=== PATIENT | male | born 1975 | race Caucasian/White ===

== ENCOUNTER → 2021-06-28 08:21 | Outpatient (CLI) | payer OTHER, SELFPAY ==
[2021-06-28 13:25] LABS: Influenza A QL RT-PCR Negative (Negative); Influenza B QL RT-PCR Negative (Negative); SARS-CoV-2 RNA PCR Negative
== END ==
PROVIDERS: PCP Internal Medicine; Visit Provider Internal Medicine
DX: R68.89 Other general symptoms and signs (principal); Z20.822 Contact with and (suspected) exposure to COVID-19
CPT/HCPCS: 87502; C9803; U0003; U0005

== ENCOUNTER 2023-04-30 08:59 | Day surgery (SDC) | payer OTHER, SELFPAY ==
[2023-04-13 11:38] VITALS: BMI 26.2
--- NOTE | 2023-04-30 07:25 | P.PNAN_ITS ---
Anes - Initial Pre Proc Eval Procedure: Operation Date: 04/30/23 13:00 Proposed Procedures p Screening Colonoscopy - Mohit Gonzalez MD Date/Time: 04/30/23 07:25 Surgeon: Mohit Gonzalez MD Pre Op Diagnosis: Neoplasm Screening Patient Data Age: 48 Gender: M Height: 1.7 m Weight: 76 kg Allergies Allergy/AdvReac Type Severity Reaction Status Date / Time No Known Allergies Allergy Verified 04/30/23 10:36 Home Medications Medication Instructions Recorded Confirmed Type No Home Medications 11/01/22 04/30/23 History Patient hx anesthesia problems: none Family hx anesthesia problems: none Results Review: All pre-operative results and documents have been reviewed as part of the pre- operative evaluation. [facility] [place] Past Medical History Medical History (Updated 04/30/23 @ 07:25 by Feng Garcia DO) Alcohol abuse Dyslipidemia Suspected sleep apnea Family History Family History Mother Diabetes mellitus Father Diabetes mellitus Family history of chronic obstructive pulmonary disease Family history of malignant neoplasm of kidney Grandparent Cerebrovascular accident Family history of Alzheimer's disease Family history of dementia Social History Social History Smoking packs per day: 0.5 Smoking cigarettes per day: 10.0 Years smoked: 15 Smoking pack-years: 7.50 Smoking status: Former smoker Second hand tobacco smoke exposure: No Smoking end date: 10/26/08 Alcohol intake: current Alcohol use details: beer daily Substance use: never Substance use type: does not use Lack of Transportation: No Lack of Food: Never True Current Housing: I Have Housing Concerned About Future Housing: No Difficulty Paying Gas/Electric Bills: No Difficulty Paying for Meds: No Currently Unemployed: No Education: Associate Degree Difficulty w/ Childcare or Family Care: No Living arrangements: with family Spiritual care concerns: No Anes - Eval Final PreProcedure Day of Procedure 04/30/23 07:25 Patient weight: overweight Heart: regular rate and rhythm Lungs: clear to auscultation Airway: Mallampati scale class II Neurological: alert and oriented Last oral intake: >/= 8 hours ASA classification: III Emergent: no Anesthetic plan: proceed Anesthesia type and monitoring: general GIVS and standard monitoring Results Review: All pre-operative results and documents have been reviewed as part of the pre- operative evaluation. Informed Consent: The patient's anesthetic plan and its attendant risks and benefits were discussed with the patient/family/POA. Questions were solicited and answers provided to the satisfaction of the patient/family/POA.
[2023-04-30 10:44] VITALS: BP 102/74; PULSE 68; RESP 18; TEMP 36.7; O2SAT 98
[2023-04-30 10:46] VITALS: BMI 26.2
[2023-04-30] MEDS: LACTATED RINGERS 1,000 ML 150 ML IV CONT (10:59)
--- NOTE | 2023-04-30 11:23 | PM.HPGS ---
History of Present Illness History of Present Illness Consent: Risks, benefits, and alternatives have been discussed and questions answered. Patient agrees to proceed with procedure. Chief complaint: Neoplasm Screening Narrative: Alec Garcia is a 48 year old male with colon polyp 5 years ago Review of Systems Constitutional: Constitutional: Denies headache(s) and Denies weakness Eyes: Eyes: Denies blurry vision ENT: Reports Normal hearing present, Denies headache(s) and Denies neck pain Cardiovascular: Cardiovascular: Denies chest pain and Denies dyspnea Respiratory: Respiratory: Denies dyspnea Gastrointestinal: Gastrointestinal: Reports no additional gastrointestinal complaints Genitourinary: Genitourinary: Denies dysuria Musculoskeletal: Musculoskeletal: Denies neck pain Integumentary/Breasts: Skin/Breast: Denies dry skin Neurologic: Reports Normal hearing present, Denies headache(s) and Denies weakness Psychiatric: Psychiatric: Denies anxiety Endocrine: Endocrine: Denies change in body appearance Hematologic/Lymphatic: Hematologic/Lymphatic: Denies easy bleeding Allergic/Immunologic: Allergic/Immunologic: Denies urticaria PMFSH Past Medical History Medical History (Updated 04/30/23 @ 07:25 by Feng Garcia DO) Alcohol abuse Dyslipidemia Suspected sleep apnea Family History Family History Mother Diabetes mellitus Father Diabetes mellitus Family history of chronic obstructive pulmonary disease Family history of malignant neoplasm of kidney Grandparent Cerebrovascular accident Family history of Alzheimer's disease Family history of dementia Social History Social History Smoking packs per day: 0.5 Smoking cigarettes per day: 10.0 Years smoked: 15 Smoking pack-years: 7.50 Smoking status: Former smoker Second hand tobacco smoke exposure: No Smoking end date: 10/26/08 Alcohol intake: current Alcohol use details: beer daily Substance use: never Substance use type: does not use Lack of Transportation: No Lack of Food: Never True Current Housing: I Have Housing Concerned About Future Housing: No Difficulty Paying Gas/Electric Bills: No Difficulty Paying for Meds: No Currently Unemployed: No Education: Associate Degree Difficulty w/ Childcare or Family Care: No Living arrangements: with family Spiritual care concerns: No Meds Home Medications and Allergies Home Medications Medication Instructions Recorded Confirmed Type No Home Medications 11/01/22 04/30/23 History Allergies Allergy/AdvReac Type Severity Reaction Status Date / Time No Known Allergies Allergy Verified 04/30/23 10:36 Vital Signs Vital Signs - 24 hr 04/30/23 10:44 Temperature 98.1 F Pulse Rate 68 Respiratory Rate 18 Blood Pressure 102/74 Pulse Oximetry 98 Oxygen Delivery Room Air Exam Const: General: comfortable and no acute distress HENMT: Face/Nose/Sinus: Normal nares present Eyes: General: appearance normal, both eyes and all related structures Neck: Neck: no JVD Resp: Auscultation: clear to auscultation bilaterally Cardio: Rate: regular rate Rhythm: regular rhythm GI: Inspection: non-distended GI Palp: Yes Soft to palpation Skin: General skin exam: normal color Neuro: General: gait normal Speech: normal speech Extrem: General: normal to inspection Psych: Mental Status: mental status grossly normal Assessment and Plan Assessment and plan (1) Encounter for screening colonoscopy: Code(s): Z12.11 - Encounter for screening for malignant neoplasm of colon Status: Acute Assessment and Plan: colonoscopy
[2023-04-30 11:46] VITALS: BP 98/78; PULSE 76; RESP 16; O2SAT 100
[2023-04-30 11:56] VITALS: BP 98/78; PULSE 66; RESP 14; O2SAT 100
[2023-04-30 12:06] VITALS: BP 107/75; PULSE 62; RESP 15; O2SAT 100
--- NOTE | 2023-04-30 13:51 | WPDANESPN ---
Anes - Prog Note Post-Op Date/Time: 04/30/23 13:51 Cardiovascular status: normal Respiratory status: normal Airway patency: baseline Mental status: baseline Post-Op hydration status: normal Vital Signs: Last Vital Signs Temp 36.7 C 04/30/23 10:44 Pulse 62 04/30/23 12:06 Resp 15 04/30/23 12:06 BP 107/75 04/30/23 12:06 Pulse Ox 100 04/30/23 12:06 O2 Del Method Room Air 04/30/23 12:06 Pain Score (VAS): 0 I/O: Intake & Output 04/29/23 04/30/23 04/30/23 23:59 07:59 15:59 Intake Total 900 Balance 900 Post-procedural complaints: none Patient Feedback: Patient satisfied with anesthetic care. Other Findings: Patient vital signs back to baseline. Patient denies nausea and vomiting. Patient's pain under control. Patient OK for discharge.
== END 2023-04-30 12:25 | disposition home or self-care (01) ==
PROVIDERS: PCP Emergency Medicine; Visit Provider Internal Medicine Gastroenterology
PROC: 0DJD8ZZ Inspection of Lower Intestinal Tract, Via Natural or Artificial Opening Endoscopic (ICD-10-PCS; CPT 45378; principal; 2023-04-30 13:00)
DX: Z86.010 Personal history of colon polyps (principal); D12.5 Benign neoplasm of sigmoid colon; K57.30 Diverticulosis of large intestine without perforation or abscess without bleeding
CPT/HCPCS: 45385

== ENCOUNTER 2023-05-01 11:06 | Outpatient (NON) | payer OTHER, SELFPAY | END 2023-05-01 11:07 | disposition home or self-care (01) | LOC: ANHLAB 11:08 | PROVIDERS: PCP Emergency Medicine; Visit Provider Internal Medicine Gastroenterology | DX: D12.5 Benign neoplasm of sigmoid colon (principal) | CPT/HCPCS: 88305 ==

== ENCOUNTER 2023-05-04 10:11 | Outpatient (CLI) | payer OTHER, SELFPAY ==
--- NOTE | ~2023-05-04 | CT_ITS ---
EXAMINATION: CT abdomen pelvis w con DATE: 05/04/2023 11:23 INDICATION: Abdominal pain TECHNIQUE: Computed tomography (CT) of the abdomen and pelvis was performed with 100 cc Omnipaque 350 intravenous contrast. The dose-length product was 344.80 mGy-cm. Automated exposure control and iter ative reconstruction technique were employed. COMPARISON: None. FINDINGS: Lung bases are unremarkable. Heart size normal. No significant pleural or pericardial effus ion. There is mild left hydronephrosis. No obstructing stone or mass is seen. There are low-density m asses of the kidneys, most likely benign cysts. Fatty infiltration of the liver. The pancreas and adrenal glands are unremarkable. There are calcifie d granulomas of the spleen. Gallbladder is present. Nonobstructive bowel gas pattern. Normal appendix . Colonic diverticulosis without evidence for diverticulitis. No acute osseous abnormality. No abnorm al pelvic masses or fluid collections. Colonic diverticulosis without diverticulitis. No significant vascular abnormality. No lymphadenopathy. IMPRESSION: 1. No acute abdominal abnormality. 2: Mild left hydronephrosis without evidence for obstructing mass or stone. Reviewed, dictated and finalized at location B. OWS SUPPORT ENGINEER
[2023-05-04 11:28] LABS: Alanine Aminotransferase 44 U/L (6-50); Albumin Level 4.7 g/dL (3.5-5.1); Alkaline Phosphatase 50 U/L (38-126); Anion Gap 8 mmol/L (8-16); Aspartate Amino Transferase 30 U/L (17-59); Bilirubin,Total 0.7 mg/dL (0.2-1.3); Blood Urea Nitrogen 16 mg/dL (9-20); Carbon Dioxide 29 mmol/L (22-30); Chloride 103 mmol/L (98-107); Cholesterol 217 mg/dL (0-200); Estimated Glomerular Filt Rate > 60; Glucose 97 mg/dL (65-110); HDL Direct 38 mg/dL; Lipase 139 U/L (23-300); Sodium 140 mmol/L (137-145); Triglycerides 226 mg/dL (<150)
[2023-05-04 11:41] LABS: LDL Cholesterol Direct 112 mg/dL
== END 2023-05-04 10:12 | disposition home or self-care (01) ==
LOC: ANHIMG 10:15
PROVIDERS: PCP Emergency Medicine; Visit Provider Emergency Medicine
DX: E78.1 Pure hyperglyceridemia (principal); E78.00 Pure hypercholesterolemia, unspecified; R10.9 Unspecified abdominal pain
CPT/HCPCS: 36415; 74177; 80053; 80061; 83690; Q9967

== ENCOUNTER 2024-02-13 07:36 | Day surgery (SDC) | payer OTHER, SELFPAY ==
[2024-02-11 08:18] VITALS: BMI 26.5
[2024-02-11 09:47] VITALS: BMI 26.6
[2024-02-13 08:02] VITALS: BMI 26.3
[2024-02-13 08:03] VITALS: BP 120/86; PULSE 72; RESP 16; TEMP 36.3; O2SAT 98
[2024-02-13] MEDS: LACTATED RINGERS 1,000 ML 150 ML IV CONT (08:22)
--- NOTE | 2024-02-13 08:34 | PM.HPGS ---
History of Present Illness History of Present Illness Consent: Risks, benefits, and alternatives have been discussed and questions answered. Patient agrees to proceed with procedure. Chief complaint: Unspecified Abdominal Pain Narrative: Alec Garcia is a 49 year old male presents for EGD. Several month history of epigastric discomfort. It is poorly described. Feels as though a thumb pushes in in this area. Occasionally it may be burning. Not particularly related to diet. Originally given a trial of pantoprazole this may no difference. He no longer takes this medication. He is uncertain whether Tums improves the symptoms. Patient recur today for EGD to evaluate we. A colonoscopy performed April of 2023 revealed only small benign polyp. Review of Systems Review of Systems: All systems reviewed & are unremarkable except as noted in HPI and below PMFSH Past Medical History Medical History Alcohol abuse Dyslipidemia Hyperlipidemia Suspected sleep apnea Family History Family History Mother Diabetes mellitus Father Diabetes mellitus Family history of chronic obstructive pulmonary disease Family history of malignant neoplasm of kidney Grandparent Cerebrovascular accident Family history of Alzheimer's disease Family history of dementia Social History Social History Smoking packs per day: 0.5 Smoking cigarettes per day: 10.0 Years smoked: 15 Smoking pack-years: 7.50 Smoking status: Former smoker Tobacco type: cigarettes Second hand tobacco smoke exposure: No Smoking end date: 10/26/08 Alcohol intake: current Drinks per week: 3 Alcohol use details: beer daily Substance use: current Substance use type: marijuana Other substance usage details: DAILY Do You Feel Safe in your Home?: Yes Lack of Transportation: No Lack of Food: Never True Current Housing: I Have Housing Concerned About Future Housing: No Difficulty Paying Gas/Electric Bills: No Difficulty Paying for Meds: No Currently Unemployed: No Education: Associate Degree Difficulty w/ Childcare or Family Care: No Living arrangements: with family Spiritual care concerns: No Meds Home Medications and Allergies Home Medications Medication Instructions Recorded Confirmed Type pantoprazole 40 mg tablet,delayed 40 mg PO DAILY #30 tabs 02/04/24 02/13/24 Rx release (Protonix) multivitamin with minerals-folic 1 tablet PO DAILY 02/11/24 02/13/24 History acid 0.4 mg tablet Allergies Allergy/AdvReac Type Severity Reaction Status Date / Time No Known Allergies Allergy Verified 02/13/24 07:54 Vital Signs Vital Signs - 24 hr 02/13/24 08:03 Temperature 97.4 F L Pulse Rate 72 Respiratory Rate 16 Blood Pressure 120/86 Pulse Oximetry 98 Oxygen Delivery Room Air Exam Narrative: Physical exam reveals patient signs stable. HEENT exam is unremarkable. Patient is anicteric. Lungs are clear to auscultation and to percussion. Heart is without murmur or extra sounds. Abdomen bowel sounds are present soft nontender with no organomegaly. Digital external rectal exam normal. Assessment and Plan Assessment and plan (1) Epigastric pain: Code(s): R10.13 - Epigastric pain Status: Acute Assessment and Plan: Patient with several month history of epigastric pain. Is requested to evaluate more thoroughly. Further recommendations may be given after endoscopy.
--- NOTE | 2024-02-13 08:36 | WPDANESEPPF ---
Anes - Initial Pre Proc Eval Procedure: Operation Date: 02/13/24 09:00 Proposed Procedures p Esophagogastroduodenoscopy - Alec Loyola MD Date/Time: 02/13/24 08:36 Surgeon: Alec Loyola MD Pre Op Diagnosis: Unspecified Abdominal Pain Patient Data Age: 49 Gender: M Height: 1.7 m Weight: 76.3 kg Last Vital Signs Temp 36.3 C L 02/13/24 08:03 Pulse 72 02/13/24 08:03 Resp 16 02/13/24 08:03 BP 120/86 02/13/24 08:03 Pulse Ox 98 02/13/24 08:03 O2 Del Method Room Air 02/13/24 08:03 Allergies Allergy/AdvReac Type Severity Reaction Status Date / Time No Known Allergies Allergy Verified 02/13/24 07:54 Home Medications Medication Instructions Recorded Confirmed Type pantoprazole 40 mg tablet,delayed 40 mg PO DAILY #30 tabs 02/04/24 02/13/24 Rx release (Protonix) multivitamin with minerals-folic 1 tablet PO DAILY 02/11/24 02/13/24 History acid 0.4 mg tablet Patient hx anesthesia problems: none Family hx anesthesia problems: none Results Review: All pre-operative results and documents have been reviewed as part of the pre-operative evaluation. [facility] Past Medical History Medical History Alcohol abuse Dyslipidemia Hyperlipidemia Suspected sleep apnea Family History Family History Mother Diabetes mellitus Father Diabetes mellitus Family history of chronic obstructive pulmonary disease Family history of malignant neoplasm of kidney Grandparent Cerebrovascular accident Family history of Alzheimer's disease Family history of dementia Social History Social History Smoking packs per day: 0.5 Smoking cigarettes per day: 10.0 Years smoked: 15 Smoking pack-years: 7.50 Smoking status: Former smoker Tobacco type: cigarettes Second hand tobacco smoke exposure: No Smoking end date: 10/26/08 Alcohol intake: current Drinks per week: 3 Alcohol use details: beer daily Substance use: current Substance use type: marijuana Other substance usage details: DAILY Do You Feel Safe in your Home?: Yes Lack of Transportation: No Lack of Food: Never True Current Housing: I Have Housing Concerned About Future Housing: No Difficulty Paying Gas/Electric Bills: No Difficulty Paying for Meds: No Currently Unemployed: No Education: Associate Degree Difficulty w/ Childcare or Family Care: No Living arrangements: with family Spiritual care concerns: No Anes - Eval Final PreProcedure Day of Procedure 02/13/24 08:36 Patient weight: overweight Heart: regular rate and rhythm Lungs: clear to auscultation Airway: Mallampati scale class II Neurological: alert and oriented Last oral intake: >/= 8 hours ASA classification: III Emergent: no Anesthetic plan: proceed Anesthesia type and monitoring: general Results Review: All pre-operative results and documents have been reviewed as part of the pre-operative evaluation. Informed Consent: The patient's anesthetic plan and its attendant risks and benefits were discussed with the patient/family/POA. Questions were solicited and answers provided to the satisfaction of the patient/family/POA.
[2024-02-13 08:51] VITALS: BP 90/68; PULSE 75; RESP 12; O2SAT 95
[2024-02-13 09:01] VITALS: BP 104/74; PULSE 81; RESP 16; O2SAT 97
[2024-02-13 09:11] VITALS: BP 105/79; PULSE 72; RESP 16; O2SAT 99
--- NOTE | 2024-02-13 10:32 | WPDANESPN ---
Anes - Prog Note Post-Op Date/Time: 02/13/24 10:32 Cardiovascular status: normal Respiratory status: normal Airway patency: baseline Mental status: baseline Post-Op hydration status: normal Vital Signs: Last Vital Signs Temp 36.3 C L 02/13/24 08:03 Pulse 72 02/13/24 09:11 Resp 16 02/13/24 09:11 BP 105/79 02/13/24 09:11 Pulse Ox 99 02/13/24 09:11 O2 Del Method Room Air 02/13/24 09:11 Pain Score (VAS): 0 I/O: Intake & Output 02/12/24 02/13/24 02/13/24 23:59 07:59 15:59 Intake Total 650 Balance 650 Post-procedural complaints: none Patient Feedback: Patient satisfied with anesthetic care.
== END 2024-02-13 09:30 | disposition home or self-care (01) ==
PROVIDERS: PCP Emergency Medicine; Visit Provider Internal Medicine Gastroenterology
PROC: 0DJ08ZZ Inspection of Upper Intestinal Tract, Via Natural or Artificial Opening Endoscopic (ICD-10-PCS; CPT 43235; principal; 2024-02-13 09:00)
DX: R10.13 Epigastric pain (principal); K21.9 Gastro-esophageal reflux disease without esophagitis
CPT/HCPCS: 43239

== ENCOUNTER 2025-01-28 08:05 | Outpatient (CLI) | payer OTHER, SELFPAY ==
--- OUTSIDE RECORDS SUMMARY | 2025-01-28 08:10 | XMS_ITS | Clinical Summary ---
Author Organization [facility] Address [address] [place] [id number] Care Team Providers Care Event Specialist Product Demonstrator Name Role Phone Solitario Chaidez MD Primary Care Provide r Allergies No known active allergies Medications atorvastatin (LIPITOR) 40 mg tablet Take 1 tablet (40 mg total) by mouth daily 30 tablet 11 11/15/2022 Active Active Problems Problem Noted Date Diagnosed Date Hyperglycemia 11/14/2022 Palpitations 11/14/2022 Chest pain, unspecified type 11/13/2022 Family History Medical History Relation Name Comments Cancer Father Cancer; Diabetes Father Diabetes mellit us; Hypertension Father Hypertension; Diabetes Mother Diabetes mellit us; Relation Name Status Comments Father Mother Social History Tobacco Use Types Packs/Day Years Used Date Smoking Tobacco: Never Alcohol Use Standard Drinks/Week Comments Yes 0 (1 standard drink = 0.6 oz pur e alcohol) Social Connection and Isolation Panel Answer Date Recorded In a typical week, how many times do you talk on the phone with family, friends, or neighbors? More than three times a week 11/14/2022 How often do you get togethe r with friends or relatives? Once a week 11/14/2022 How often do you attend chur ch or holiness services? Never 11/14/2022 Do you belong to any clubs o r organizations such as taoism groups, unions, fraternal or athletic groups, or school groups? No 11/14/2022 How often do you attend meet ings of the clubs or organizations you belong to? Never 11/14/2022 Are you , , di vorced, , never , or living with a partner? 11/14/2022 Overall Financial Resource Strain (CARDIA) Answe r Date Recorded How hard is it for you to pa y for the very basics like food, housing, medical care, and heating? Not hard at all 11/14/2022 Hunger Vital Sign Answer Date Recorded Within the past 12 months, y ou worried that your food would run out before you got the money to buy more. Never true 11/15/19 23 Within the past 12 months, t he food you bought just didn't last and you didn't have money to get more. Never true 11/14/2022 PRAPARE - Transportation Answer Date Re corded In the past 12 months, has l ack of transportation kept you from medical appointments or from getting medications? No 10/27 In the past 12 months, has l ack of transportation kept you from meetings, work, or from getting things needed for daily living? No 11/14/2022 Housing Stability Vital Sign Answer Jamel e Recorded In the last 12 months, was t here a time when you were not able to pay the mortgage or rent on time? No 11/14/2022 In the last 12 months, how many places have you lived? 1 11/14/2022 In the last 12 months, was t here a time when you did not have a steady place to sleep or slept in a half-way (including now)? No 11/14/2022 Personal Safety Answer Date Recorded Have you ever been in or are you currently in a harmful physical or emotional relationship or is someone making you feel afraid or unsafe? Denies 11/13/2022 Education Answer Date Recorded What is the highest level of school you have completed or the highest degree you have received? 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 Gender Identity Not on file Sexual Orientation Not on file Obstetrics History Last Filed Vital Signs Vital Sign Reading Time Taken Comments Blood Pressure 111/84 11/14/2022 11:18 AM CDT Pulse 91 11/14/2022 11:18 AM CDT Temperature 36.1 C (97 F) 11/14/2022 11:18 AM CDT Respiratory Rate 16 11/14/2022 11:1 8 AM CDT Oxygen Saturation 98% 11/14/2022 11: 18 AM CDT Inhaled Oxygen Concentration - - Weight 77.1 kg (169 lb 15.6 oz) 11/13/2022 5:55 PM CDT Height 170.2 cm (5' 7.01) 11/14/2022 2:36 PM CD T Body Mass Index 26.62 11/13/2022 5:55 PM CDT Plan of Treatment Health Maintenance Due Date Last Done Comments Colon Cancer Screening-Colonoscopy 1974 Depression Screening 1974 Hepatitis C Screening 1974 Prostate Cancer Screening-PSA 1974 DTaP/Tdap/Td Vaccine (1 - Tdap) 1985 Hepatitis B Screening 02/12/1992 Regular Well Visit/Exam 18-64 02/12/1992 Covid-19 Vaccine (4 - 2023-2 5 season) 2024 04/19/2021, 08/20/2020, 07/29/2020 Zoster Vaccine (1 of 2) 02/12/2024 Influenza Vaccine (#1) 2025 8, 06/18/2012 Pneumococcal vaccine <65 Aged Out No longer eligible based on patient's age to complete this topic Insurance [place] [address] [facility] CHOICE PLUS CHOICE PLUS [facility] CHOICE PLUS Advance Directives For more information, please contact: [phone] * Full Code (Latest Code Status on File) Date Activated Date Inactivated Comments 11/13/2022 3:36 PM 11/14/2022 6:56 PM Care Teams Event Specialist Product Demonstrator Relationship Specialty Start Date End Date Solitario Chaidez MD [id number] [place] [address] PCP - General Emergency Medicine 11/13/22
--- NOTE | 2025-02-18 12:29 | P.SLEEP_ITS ---
Sleep Study - Home Unattended Date of Study: 01/28/25 Ordering Provider: CLAUDETTE Bell Interpreting Provider: Radha Arnett, DO Home Sleep Study Type: Watch PAT Height: 1.7 m Weight: 75.296 kg Body Mass Index: 25.9 Neck Circumference (inches): 15 [place]: 11 Reason for Sleep Study Daytime hypersomnia Sleep History The patient is a 50-year-old male that had a sleep study ordered by the pulmonary group for evaluation of sleep apnea. The patient admits to snoring loudly, excessive daytime sleepiness, interruptions in breathing while asleep, trouble falling asleep and trouble staying asleep. He does choke or gasp at night. He does not have trouble breathing on his back. He denies morning headaches. He does have a dry or sore mouth / throat in the morning. He denies nocturnal heartburn. He denies nocturia. He does have difficulty returning to sleep if he wakes up throughout the night. He does use hypnotics or sedatives. He denies feeling anxious about sleep. He does feel tired or sleepy during the day. He does feel tired in the morning. He denies having the urge to fall asleep during the day. He does feel drowsy while driving. He denies sleep paralysis, cataplexy and hypnagogic/ hypnopompic hallucinations. He does clench or grind his teeth. He denies kicking or jerking his legs excessively. He does have a restless feeling in his legs at causes an urge to move his legs. The restless feeling does not get worse with rest but it does get better with activity. It only occurs in the evenings. It does not cause a disturbance in his sleep. He goes to bed at 9:00 p.m. every night. It takes him 2 hours to fall asleep. He gets 6 hours of sleep on work days and 6-1/2 hours of sleep on his days off. His sleep is a little more restorative on his days off. He denies taking any planned naps. He denies dream enactment behavior. He denies sleep walking. He consumes 1-2 cups of caffeinated beverage per day. He consumes 2 alcoholic beverages 1-2 nights per week. He denies tobacco use. He denies exercising on a regular basis. [facility] Past Medical History Medical History Hyperlipidemia Dyslipidemia Alcohol abuse Suspected sleep apnea Family History Family History Mother Diabetes mellitus Father Diabetes mellitus Family history of chronic obstructive pulmonary disease Family history of malignant neoplasm of kidney Depression Anxiety Hypertension Grandparent Cerebrovascular accident Family history of Alzheimer's disease Family history of dementia Sibling History of alcoholism Social History Social History Smoking packs per day: 0.5 Smoking cigarettes per day: 10.0 Years smoked: 15 Smoking pack-years: 7.50 Smoking status: Former smoker Tobacco type: cigarettes Second hand tobacco smoke exposure: No Smoking end date: 10/26/08 Alcohol intake: current Drinks per week: 3 Alcohol use details: beer daily Substance use: current Substance use type: marijuana Other substance usage details: DAILY Do You Feel Safe in your Home?: Yes Lack of Transportation: No Lack of Food: Never True Current Housing: Decline to Answer Concerned About Future Housing: Decline to Answer Difficulty Paying Gas/Electric Bills: Decline to Answer Difficulty Paying for Meds: Decline to Answer Currently Unemployed: Decline to Answer Education: Decline to Answer Difficulty w/ Childcare or Family Care: Decline to Answer Living arrangements: with family Spiritual care concerns: No Medications Home Medications ?Medication ?Instructions ?Recorded ?Confirmed ?Type multivitamin with minerals-folic 1 tablet PO DAILY 02/04/25 History acid 0.4 mg tablet pantoprazole 40 mg tablet,delayed 40 mg PO DAILY PRN 0 02/04/25 02/04/25 History release (Protonix) Sleep Procedure The sleep study was completed using [place] a technically adequate device with seven channels: peripheral arterial tone, actigraphy, body position, snore, respiratory movement, pulse oximetry, sleep staging, and heart rate. Prior to using the device, the patient received verbal and written instructions for its application and was provided with the help desk phone number for additional telephonic instruction with 24-hour availability of qualified personnel to answer questions. The study was scored using CMS guidelines. Sleep Architecture The total recording time is 7 hrs, 12 min. The total sleep time is 5 hrs, 23 min. Sleep latency is 24 minutes. REM latency is 101 minutes. The patient had 13 episodes of waking. Sleep architecture shows 18.2% deep sleep, 47.0% light sleep, and (as % Total Sleep Time) showed NREM (Light 47.0%; Deep 18.2%), and a 34.8% stage REM. The patient spent 44.5% of total sleep time in the supine position. Sleep efficiency was 74.77. Respiratory Analysis The overall AHI (pAHI 4%:) is 6.8. The overall AHI (pAHI 3%:) is 11.3. The central AHI is 0.8. The AHI was 11.6 in NREM and 10.7 in REM sleep. The AHI was 16.0 in Supine and 7.7 in Non-supine sleep. Percent of Willie Trevino respirations is 0.0. Oximetry Data The oxygen desaturation index (MANNY 4%:) is 4.5. The mean saturation is 94%, and the lowest saturation is 85%. Time spent with saturation < 88% is 0.4 minutes. Snoring Profile Snoring average intensity is 41 dB. The patient snored above 45 decibels for 6.3 minutes, 1.9% of sleep time. Cardiac Profile The average pulse rate is 67 beats per minutes. The lowest pulse rate is 55 bpm. The highest pulse rate reported is 101 bpm. Atrial fibrillation was not detected. Premature beats occur <0.1 per minute. Assessment and Plan Assessment and Plan (1) Obstructive sleep apnea: Code(s): G47.33 - Obstructive sleep apnea (adult) (pediatric) Status: Acute Assessment and Plan: The patient had an overall AHI of 6.8 with desaturation down to 85%. This is consistent with mild sleep apnea. Due to the patient's excessive daytime sleepiness (ESS of 11/24), he qualifies for treatment. I recommend that the patient be prescribed AutoPAP 5-15 cm H2O, CPAP mask/filters/tubing and heated humidity. A mandibular advancement device is also an acceptable treatment option. This should be used with all episodes of sleep.? Compliance should be reviewed within 31-90 days of starting therapy for usage greater than 4 hours per night greater than 70% of the nights. The patient should be asked about symptoms such as?excessive daytime sleepiness, quality of sleep, decreased nocturia, increased?mental functioning such as memory, mood, and concentration. The patient's sleep history is somewhat suggestive of Restless Leg Syndrome. I recommend that the patient have a serum ferritin drawn for evaluation of iron deficiency anemia. If the patient has a serum ferritin less than 75 ng/mL, I recommend starting a daily iron supplement and a Vitamin C supplement for better absorption. If the serum ferritin is greater than 75 ng/mL, I recommend starting a dopamine agonist and titrating the dose until symptoms resolve. There are no npharmacological methods to treat limb movements including daily exercise, stretching calf muscles before bed, avoiding excessive amounts of caffeine and alcohol, vitamin B supplementation, magnesium lotion massaged into legs before bed, and use of a weighted blanket. Data The data obtained during this sleep study is adequate for interpretation. Certification This sleep study has been reviewed by a board certified sleep medicine physician.
[2025-02-18 14:24] VITALS: BMI 25.9
== END 2025-01-29 10:28 | disposition home or self-care (01) ==
LOC: ANHCSM 08:05
PROVIDERS: PCP Emergency Medicine; Visit Provider Physician Assistant
DX: G47.33 Obstructive sleep apnea (adult) (pediatric) (principal); G47.10 Hypersomnia, unspecified
CPT/HCPCS: 95800